=== PATIENT | female | born 2005 | race Caucasian/White ===

== ENCOUNTER 2024-07-08 08:16 | Emergency (ER) | payer OTHER, SELFPAY ==
[2024-07-08 08:45] VITALS: BP 131/89; PULSE 81; RESP 20; TEMP 36.8; O2SAT 100
--- NOTE | 2024-07-08 09:04 | ED.GENADULT ---
HPI - General Adult General Chief complaint: Chest Pain Stated complaint: chest,back and shoulder pain Source: patient Mode of arrival: ambulatory Limitations: no limitations History of Present Illness HPI narrative: 19-year-old female presented for complaint of an episode of chest pain which occurred today while at work. Pain started under both breasts then wrapped around her back. Pain is described as sharp stabbing and felt like she could not breathe. She states it lasted a few minutes, worsened with deep breath. Pain is mild now, to the mid upper back and across chest. Worse with certain movements and deep breaths. Denies recent illness, coughing, wheezing, denies exertion. Hx anxiety, reports increased stress. Related Data Home Medications Medication Instructions Recorded Confirmed Unable to Obtain Home Medications 07/08/24 07/08/24 Allergies Allergy/AdvReac Type Severity Reaction Status Date / Time Unable to Assess Allergy Verified 07/08/24 09:08 Review of Systems Review of Systems: CONSTITUTIONAL: Denies body aches, fever, chills, or sweats. EYES: Denies visual changes, redness, or discharge. ENT: Denies rhinorrhea, congestion, sore throat, or otalgia. CARDIOVASCULAR: reports chest pain Denies palpitations, or edema. RESPIRATORY: Denies cough or dyspnea. GASTROINTESTINAL: Denies abdominal pain, nausea, vomiting, or diarrhea. GENITOURINARY: Denies dysuria or hematuria. SKIN: Denies rash, itching, or wounds. MUSCULOSKELETAL: reports upper back pain NEUROLOGIC: Denies headache, numbness, tingling, or weakness. PSYCH: reports anxiety. All systems reviewed & are unremarkable except as noted in HPI and below PMFSH Past Medical History Medical History (Updated 07/08/24 @ 09:35 by Mahi Stein APRN) Anxiety Comments At time of signature, I have reviewed and agree with nursing past medical, surgical, social and family history unless otherwise noted. Please see nursing chart for further information. There is no relevant family history pertinent to the presenting complaint Exam Narrative: GENERAL: Well-appearing EYES: EOMI. No redness or drainage. Conjunctivae normal. ENT: Mucous membranes pink and moist. No rhinorrhea. CHEST: No respiratory distress. Clear to auscultation. Nontender with palpation. HEART: Regular rate and rhythm. No murmur appreciated. Normal peripheral pulses. ABDOMEN: Soft, nontender, nondistended, normal active bowel sounds. MUSCULOSKELETAL: Nontender chest/back. No bony tenderness. SKIN: Warm, dry, no rash. Capillary refill normal. Normal skin turgor. NEURO: No focal deficits. Alert and oriented x3. Gait steady. PSYCH: Normal affect. Tearful at times. Course Course Emergency Course: Patient is aware of diagnosis, understands and agrees to treatment plan. Anticipatory guidance given. Patient agrees to follow-up as directed and is aware of reasons to seek care at the emergency department. Portions of this record may have been created with voice recognition software Level of Care: Express Care Visit Vital Signs Vital signs: Vital Signs Temperature 98.2 F 07/08/24 08:45 Pulse Rate 81 07/08/24 08:45 Respiratory Rate 20 07/08/24 08:45 Blood Pressure 131/89 07/08/24 08:45 Pulse Oximetry 100 07/08/24 08:45 Temperature 98.2 F 07/08/24 08:45 Pulse Rate 81 07/08/24 08:45 Respiratory Rate 20 07/08/24 08:45 Blood Pressure 131/89 07/08/24 08:45 Pulse Oximetry 100 07/08/24 08:45 Medical Decision Making MDM Narrative Medical decision making narrative: Discussed physical exam findings and EKG. Symptoms most c/w muscle spasm. VSS, currently pain is minimal. Discussed ER transfer, pt will closely monitor and go to the ER if symptoms worsen/persist. Advised supportive measures and signs/symptoms to go to the ER. Pt is appropriate for outpt treatment and f/u. Differential Diagnosis Differential Diagnosis: STEMI, AAA, PE
--- NOTE | 2024-07-08 09:14 | ECG_ITS ---
Test Date: 2024-07-08 09:21:51 Measurements Intervals [place] Rate: 73 P: 53 IN: 146 QRS: 65 QRSD: 84 T: 35 QT: 377 QTc: 418 Interpretive Statements SINUS RHYTHM WITH SINUS ARRHYTHMIA NORMAL ECG No previous ECG available for comparison Electronically Signed On 07-08-2024 12:35:20 CDT by Daniele Melendrez M.D.
== END 2024-07-08 09:46 | disposition home or self-care (01) ==
PROVIDERS: Emergency Provider Nurse Practitioner Family
DX: R07.9 Chest pain, unspecified (principal)
CPT/HCPCS: 93005; 99203; G0463